=== PATIENT | male | born 1985 | race African-American/Black ===

== ENCOUNTER 2017-11-23 17:43 | Emergency (ER) | payer SELFPAY ==
[2017-11-23] MEDS: predniSONE 20 MG TABLET PO ONE (18:55)
--- NOTE | 2017-11-23 18:59 | ED Physician Documentation ---
Lower Extremity Injury - HISTORIAN Historian: patient - HPI Stated Complaint: left knee pain Chief Complaint: Lower Extremity Problem Onset: days ago Where: work Severity: moderate Context: denies: fall, twist, direct blow Associated Symptoms:: swelling, other (pain) Modifying Factors:: pain on movement - ROS CONST: no problems CVS/RESP: none GI/: denies: problems urinating, nausea, vomiting MS/SKIN/LYMPH: other (left knee swelling and pain) NEURO: denies: headache, head injury, anxiety, depression - PAST HX Past History: none Immunizations: referred to PCP Allergies/Adverse Reactions: Allergies Allergy/AdvReac Type Severity Reaction Status Date / Time No Known Allergies Allergy Verified 11/23/17 18:05 Home Medications: Ambulatory Orders Medication Instructions Recorded NK [NK] 12/10/14 - SOCIAL HX Smoking History: cigarettes Alcohol Use: none Drug Use: none - FAMILY HX Family History: no significant history - VITAL SIGNS Vital Signs: Vital Signs Temp Pulse Resp BP Pulse Ox 98.7 F 74 14 120/76 99 11/23/17 17:54 11/23/17 17:54 11/23/17 17:54 11/23/17 17:54 11/23/17 17:54 - REVIEWED ASSESSMENTS Nursing Assessment Reviewed: Yes Vitals Reviewed: Yes Progress - Results/Orders Results/Orders: left knee x-ray ordered - Progress Progress: pt. given jose, ice and 60 mg prednisone p.o. in er Critical Care Note - Critical Care Note Total Time (mins): 0 ED Results Lab/Radiology - Lab Results Lab Results: none ordered - Radiology Radiology Impressions: none ordered - Orders Orders: ED Orders Category Date Time Status KNEE 3 VIEWS [RAD] Stat Exams 11/23/17 Taken predniSONE [Deltasone] Med 11/23/17 18:52 Once 60 mg PO NOW ONE Lower Extremities Injury Phy - Physical Exam General Appearance: mild distress Hips: bilateral hip: non-tender, normal inspection, normal range of motion, no evidence of injury Legs: bilateral: non-tender, normal inspection, normal range of motion, no evidence of injury Knees: left: joint effusion, swelling (suprapatellar area) Ankle: bilateral: non-tender, normal inspection, normal range of motion, no evidence of injury Foot: bilateral foot: non-tender, normal inspection, normal range of motion, no evidence of injury DTR - Lower Extremities: knee (R): 2+, knee (L): 2+, ankle (R): 2+, ankle (L): 2 + Ligaments: No: laxity on anterior drawer, laxity on posterior drawe, laxity on medial stress, laxity on lateral stress Gait: limited by pain Neuro/Vascular/Tendon: no vascular compromise, motor nml, sensation nml Head/ENT: nml inspection, pharynx nml Neck/Back: nml inspection, non-tender Resp/CVS: chest non-tender, breath sounds nml, heart sounds nml, no resp. distress, lungs clear, reg. rate & rhythm Abdomen: non-tender, pelvis stable Discharge Clincal Impression: Bursitis Qualifiers: Bursitis location: knee Knee bursitis location: prepatellar bursitis Laterality : left Qualified Code(s): M70.42 - Prepatellar bursitis, left knee Referrals: Primary Doctor,No [Primary Care Provider] - 2 Days Comments: Discharged in stable condition with jose, ice, rest x 48 hours, Prednisone taper. Condition: Stable Disposition: 01 HOME, SELF-CARE Decision to Admit: NO Decision Time: 18:59
[2017-11-23 19:19] VITALS: BP 124/70
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
== END 2017-11-23 19:15 | disposition home or self-care (01) ==
LOC: ED 17:43
DX: M70.42 Prepatellar bursitis, left knee (principal)
CPT/HCPCS: 73562; 99282